=== PATIENT | male | born 1940 | race Hispanic/Latino ===

== ENCOUNTER 2017-07-05 22:08 | Observation (INO) | payer MEDICARE, BC ==
[2017-07-05] MEDS ORDERED: Sodium Chloride 0.9% 1,000 ML IV STA (22:38)
[2017-07-05] MEDS ORDERED: Morphine 4 MG/ML VIAL IV ONE (22:38)
[2017-07-05] MEDS ORDERED: Iohexol 240 (50 ml) PO ONE (22:38)
--- NOTE | 2017-07-05 22:40 | ED PDOC ---
HPI: Chest Pain Time Seen by Provider: 07/05/17 22:23 Chief Complaint (Nursing): Chest Pain Chief Complaint (Provider): Abd pain History Per: Patient History/Exam Limitations: no limitations Onset/Duration Of Symptoms: Days (today) Current Symptoms Are (Timing): Better Additional Complaint(s): Pt. with off and on abd pain diffuse. No diarrhea, weakness, nasuea, vomit. Also off and on mild tightness to left chest. Currently very minimal chest tightness. No weakness, headaches, dizziness. No neck pain. No dyspnea. No new food or drinks. No fever. No dysuria. Pt. took an ASA today. Past Medical History Reviewed: Nursing Documentation, Vital Signs Vital Signs: Last Vital Signs Temp 97.4 F L 07/05/17 22:20 Pulse 58 L 07/05/17 22:20 Resp 16 07/05/17 22:20 BP 160/63 H 07/05/17 22:20 Pulse Ox 98 07/05/17 22:43 - Medical History PMH: CAD, HTN, Hypercholesterolemia, Chronic Kidney Disease - Surgical History Surgical History: Coronary Stent - Family History Family History: States: Unknown Family Hx - Social History Alcohol: None Drugs: Denies - Allergies Allergies/Adverse Reactions: Allergies Allergy/AdvReac Type Severity Reaction Status Date / Time No Known Allergies Allergy Verified 07/05/17 22:23 Review of Systems ROS Statement: Except As Marked, All Systems Reviewed And Found Negative Cardiovascular: Positive for: Chest Pain Gastrointestinal: Positive for: Abdominal Pain Physical Exam - Reviewed Nursing Documentation Reviewed: Yes Vital Signs Reviewed: Yes - Physical Exam Appears: Positive for: Non-toxic, No Acute Distress Head Exam: Positive for: ATRAUMATIC, NORMAL INSPECTION, NORMOCEPHALIC Skin: Positive for: Normal Color, Warm, DRY Eye Exam: Positive for: EOMI, Normal appearance, PERRL ENT: Positive for: Normal ENT Inspection Neck: Positive for: Normal, Painless ROM Cardiovascular/Chest: Positive for: Regular Rate, Rhythm Respiratory: Positive for: CNT, Normal Breath Sounds Gastrointestinal/Abdominal: Positive for: Soft, Tenderness (mild diffuse; no palpable mass; no distension). Negative for: Distended, Guarding Back: Positive for: Normal Inspection. Negative for: L CVA Tenderness, R CVA Tenderness Extremity: Positive for: Normal ROM. Negative for: Tenderness, Pedal Edema Neurologic/Psych: Positive for: Alert, Oriented - Laboratory Results Result Diagrams: 07/05/17 22:40 07/05/17 22:40 Interpretation Of Abn Labs: 04/05.6 - ECG ECG: Positive for: Interpreted By Me, Viewed By Me ECG Rhythm: Positive for: Sinus Rhythm, Right Bundle Branch Block O2 Sat by Pulse Oximetry: 98 Pulse Ox Interpretation: Normal - Radiology X-Ray: Interpreted by Me, Viewed By Me X-Ray Interpretation: No Acute Disease - Progress ED Course And Treament: 2332: Stable. Considering bun and cr, will give IV contrast in order to look as vessels in abd. Pt. with risk factors indicating need for proper evaluation. Will hydrate pt. Dr. Mitchell to take over care. Fu on ct. Disposition - Clinical Impression Clinical Impression: Chest pain, Abdominal pain - Patient ED Disposition Is Patient to be Admitted: Transfer of Care - Disposition Disposition: Transfer of Care Disposition Time: 23:35 Condition: FAIR Patient Signed Over To: Angel Mitchell
[2017-07-05] MEDS ORDERED: Morphine 4 MG/ML VIAL ONE (22:46)
[2017-07-05 22:50] LABS: BASO % 0.3 % (0.0-2.0); EOS % 0.8 % (0.0-4.0); LYMPH # 1.2 K/uL (1.0-4.3); LYMPH % 18.3 % (20.0-40.0); MEAN CELL VOLUME 91.5 fl (80.0-94.0); MEAN CORPUSCULAR HGB CONC 32.8 g/dL (33.0-37.0); MEAN PLATELET VOLUME 8.8 fl (7.2-11.7); MONO # 0.5 K/uL (0.0-0.8); MONO % 8.5 % (0.0-10.0); NEUT # 4.7 K/uL (1.8-7.0); NEUT % 72.1 % (50.0-75.0); NRBC % 0.1 % (0.0-0.0); RBC 4.02 Mil/uL (4.40-5.90); RED CELL DISTRIBUTION WIDTH 13.6 % (11.5-14.5); WHITE BLOOD COUNT 6.5 K/uL (4.8-10.8)
[2017-07-05 22:56] LABS: ALB/GLOB RATIO 0.9 (1.0-2.1); CALCIUM 10.2 mg/dL (8.4-10.2); PARTIAL THROMBOPLASTIN TIME 28.5 Seconds (25.6-37.1); PROTHROMBIN TIME 10.6 Seconds (9.8-13.1)
[2017-07-05 23:08] LABS: TROPONIN I 0.022 ng/mL (0.00-0.120)
--- NOTE | 2017-07-06 00:04 | ED PDOC ---
- Laboratory Results Result Diagrams: 07/05/17 22:40 07/05/17 22:40 - ECG O2 Sat by Pulse Oximetry: 98 Medical Decision Making Medical Decision Making: Time: 00:00 Patient endorsed to me pending CT and admission to hospital. Time: 01:53 CT Abdomen Pelvis FINDINGS: LUNG BASES: No significant abnormality seen. ABDOMEN: LIVER: Small low density liver lesions, with at least 2 seen, the larger measuring 1 cm. These most likely represent cysts. GALLBLADDER AND BILE DUCTS: No CT evidence of acute cholecystitis. No evidence of significant biliary ductal dilatation. PANCREAS: No CT evidence of acute pancreatitis. SPLEEN: No acute abnormality of the spleen identified. ADRENALS: No acute abnormality of the adrenal glands identified. KIDNEYS AND URETERS: Bilateral perinephric stranding, a nonspecific finding. No evidence of hydroureteronephrosis. STOMACH AND BOWEL: Mild wall thickening of the distal stomach, suspicious for mild focal gastritis. No evidence of diffuse gastric wall thickening. Gastroesophageal reflux. Duodenal diverticulum noted. Otherwise, no significant abnormality of the bowel is identified. No acute abnormality of the colon identified. No evidence of small bowel obstruction. APPENDIX: Appendix is seen, and is within normal limits in appearance. PELVIS: BLADDER: No acute abnormality of the bladder identified. REPRODUCTIVE: No acute abnormality of the reproductive organs is seen. ABDOMEN and PELVIS: INTRAPERITONEAL SPACE: No evidence of free air or free fluid. BONES/JOINTS: Primary osteoarthritic changes involving the hips bilaterally. SOFT TISSUES: Bilateral fat-containing inguinal hernias. VASCULATURE: No evidence of abdominal aortic aneurysm. No evidence of periaortic hemorrhage. LYMPH NODES: Best seen on image 88 series 601, there is a 3.3 x 2.4 cm ovoid soft tissue mass in the right lower abdomen, which appears localized to the small bowel mesentery, and is suspicious for an enlarged mesenteric lymph node. This has tiny calcifications within it. It was also seen on the prior CT, and was similar in size, highly suggestive of a benign etiology. There is mild stranding of the adjacent fat, and there are multiple nearby small mesenteric lymph nodes. No evidence of diffuse pathologic lymphadenopathy. IMPRESSION: - Findings suspicious for focal gastritis, involving the distal stomach. - Findings suspicious for an enlarged 3.3 x 2.4 cm mesenteric lymph node in the right lower quadrant. This was also seen on a remote prior CT of 06/03/2007, and does not appear significantly enlarged in size, highly suggestive of a benign etiology. If indicated clinically, this finding could be further evaluated with PET scan, PET/CT or a short term followup CT. - See above for remaining findings. Time: 02:01 Patient will be admitted to [facility] under obs/tele for chest pain resident aware.. Scribe Attestation: Documented by Judith Grant, acting as a scribe for Angel Mitchell MD Provider Scribe Attestation: All medical record entries made by the Scribe were at my direction and personally dictated by me. I have reviewed the chart and agree that the record accurately reflects my personal performance of the history, physical exam, medical decision making, and the department course for this patient. I have also personally directed, reviewed, and agree with the discharge instructions and disposition. Disposition - Clinical Impression Clinical Impression: Chest pain, Abdominal pain - POA Present On Arrival: None - Disposition Disposition: Hospitalized as Observation Patient Disposition Time: 02:01 Condition: FAIR
[2017-07-06] MEDS ORDERED: Iodixanol 320 MG/ML 100 ML BOTTLE IV ONE (00:44)
[2017-07-06] MEDS ORDERED: Sodium Chloride 0.9% 100 ML ONE (00:45)
--- NOTE | 2017-07-06 01:53 | CT ---
EXAM: CT Abdomen and Pelvis With Intravenous Contrast EXAM DATE/TIME: 07/05/2017 10:38 PM CLINICAL HISTORY: 76 years old, male; Pain; Abdominal pain; Epigastric; Additional info: Abd pain TECHNIQUE: Axial computed tomography images of the abdomen and pelvis with intravenous contrast. All CT scans at this facility use one or more dose reduction techniques, viz.: automated exposure control; ma/kV adjustment per patient size (including targeted exams where dose is matched to indication; i.e. head); or iterative reconstruction technique. Coronal and sagittal reformatted images were created and reviewed. CONTRAST: 80 mL of [id number] administered intravenously. COMPARISON: Prior CT abdomen and pelvis of 06/02/2017 FINDINGS: LUNG BASES: No significant abnormality seen. ABDOMEN: LIVER: Small low density liver lesions, with at least 2 seen, the larger measuring 1 cm. These most likely represent cysts. GALLBLADDER AND BILE DUCTS: No CT evidence of acute cholecystitis. No evidence of significant biliary ductal dilatation. PANCREAS: No CT evidence of acute pancreatitis. SPLEEN: No acute abnormality of the spleen identified. ADRENALS: No acute abnormality of the adrenal glands identified. KIDNEYS AND URETERS: Bilateral perinephric stranding, a nonspecific finding. No evidence of hydroureteronephrosis. STOMACH AND BOWEL: Mild wall thickening of the distal stomach, suspicious for mild focal gastritis. No evidence of diffuse gastric wall thickening. Gastroesophageal reflux. Duodenal diverticulum noted. Otherwise, no significant abnormality of the bowel is identified. No acute abnormality of the colon identified. No evidence of small bowel obstruction. APPENDIX: Appendix is seen, and is within normal limits in appearance. PELVIS: BLADDER: No acute abnormality of the bladder identified. REPRODUCTIVE: No acute abnormality of the reproductive organs is seen. ABDOMEN and PELVIS: INTRAPERITONEAL SPACE: No evidence of free air or free fluid. BONES/JOINTS: Primary osteoarthritic changes involving the hips bilaterally. SOFT TISSUES: Bilateral fat-containing inguinal hernias. VASCULATURE: No evidence of abdominal aortic aneurysm. No evidence of periaortic hemorrhage. LYMPH NODES: Best seen on image 88 series 601, there is a 3.3 x 2.4 cm ovoid soft tissue mass in the right lower abdomen, which appears localized to the small bowel mesentery, and is suspicious for an enlarged mesenteric lymph node. This has tiny calcifications within it. It was also seen on the prior CT, and was similar in size, highly suggestive of a benign etiology. There is mild stranding of the adjacent fat, and there are multiple nearby small mesenteric lymph nodes. No evidence of diffuse pathologic lymphadenopathy. IMPRESSION: - Findings suspicious for focal gastritis, involving the distal stomach. - Findings suspicious for an enlarged 3.3 x 2.4 cm mesenteric lymph node in the right lower quadrant. This was also seen on a remote prior CT of 06/03/2007, and does not appear significantly enlarged in size, highly suggestive of a benign etiology. If indicated clinically, this finding could be further evaluated with PET scan, PET/CT or a short term followup CT. - See above for remaining findings.
--- NOTE | 2017-07-06 03:44 | CP.PCM.HP ---
Addendum entered and electronically signed by Yaw Welsh MD 07/06/17 11:09: Pt seen and examined at bedside. Reports resolved chest discomfort. Improved abdominal discomfort. Tolerating PO diet. Denies SOB/V/diarrhea. AAOX3. Pending Troponin x2 at 14:00 Pending repeat EKG Original Note: History of Present Illness - History of Present Illness History of Present Illness: 76 y/o male with PMHx of CAD, s/p ACS in 2000 ( underwent cardiac cath in [place] with stent placement), HTN, CKD stage 3, prostate cancer s/p partial Prostatectomy, Hypothyroidism, Skin cancer ( basal and squamous cell), Major depression, sleep apnea using CPAP at home, Multiple Myeloma, presents to ED complaining of 24 hours of left sided chest tightness sensation, and diffuse abdominal pain. Patient states that the abdominal pain started first, " difficult to describe", constant, 8-9/10 intensity, no aggravating factors, alleviated to intensity 4-5/10 after ER treatment with combination of morphine and famotidine once, associated with very mild nausea without vomiting episode, and intermittent left sided chest tightness sensation, and heartburn. Also patient reports one soft non bloody stool yesterday. Denies SOB, palpitations, dizziness, diaphoresis, blood in urine or stools, urinary symptoms. Left chest tightness sensation also for the last 24 hours, no radiating, relieved 2 hours ago from this current evaluation. PMD: Dr. Galvan Barrel Assembly Inspector: Dr. Sam( last evaluation was 2 years ago) Agency Operator: Bhavesh Eddy PMHx: CAD, s/p ACS in 2000 ( underwent cardiac cath in [place] with stent placement), HTN, CKD stage 3, prostate cancer s/p partial Prostatectomy, Hypothyroidism, Skin cancer ( basal and squamous cell), Major depression, sleep apnea using CPAP at home, Multiple Myeloma Allergies: Pollen/watery eyes Fhx: Father: of [place] in his 70s, Mother: /CHF Shx: Left Knee meniscus removal, Partial Prostatectomy, Skin Cancer removal ( under surveillance with a tug boat captain, last removal 1 1/2 years ago), Tonsillectomy Social Hx: Former smoker/ Quit in 1988, Social ETOH, denies illicit drugs Meds: as per records in [facility] and [facility] ED course: VS: afebrile, Pulse: 58, BP: 160/63, 98 % oxygen sat in room air PE:remarkable for mild diffuse abdominal tenderness to palpation without rebound , guarding or rigidity EKG: poor quality, but with evidence of RBBB, sinus bradycardia, and Q wave abnormality. labs: CBC unremarkable, CMP: GFR 42, BUN/Cr: 31/1.6, elevated total protein, troponin I x 1 neg CXR: pending official report. No gross evidence of acute changes compared with prior test CT abd:Abd pelvis PO & IV contrast reported as findings suspicious for focal gastritis, involving the distal stomach. Findings suspicious for an enlarged 3.3 x 2.4 cm mesenteric lymph node in the RLQ seen in prior CT on 06/03/2007, suggestive of a benign etiology. Treatment: morphine 4 mg IV once, pepcid 20 mg IV once Present on Admission - Present on Admission Any Indicators Present on Admission: No History of DVT/PE: No History of Uncontrolled Diabetes: No Urinary Catheter: No Decubitus Ulcer Present: No Review of Systems - Review of Systems All systems: reviewed and no additional remarkable complaints except (as per HPI ) Past Patient History - Past Social History Alcohol: None Drugs: Denies - CARDIAC Hx Hypercholesterolemia: Yes Hx Hypertension: Yes - RENAL Hx Chronic Kidney Disease: Yes - PSYCHIATRIC Hx Substance Use: No - SURGICAL HISTORY Hx Coronary Stent: Yes Meds Allergies/Adverse Reactions: Allergies Allergy/AdvReac Type Severity Reaction Status Date / Time No Known Allergies Allergy Verified 07/05/17 22:23 Physical Exam - Constitutional Appears: Non-toxic, No Acute Distress - Eye Exam Eye Exam: Normal appearance - ENT Exam ENT Exam: Mucous Membranes Moist - Respiratory Exam Respiratory Exam: Clear to Auscultation Bilateral, NORMAL BREATHING PATTERN. absent: Accessory Muscle Use, Chest Wall Tenderness, Decreased Breath Sounds, Prolonged Expiratory Phase, Rales, Rhonchi, Wheezes, Respiratory Distress, Stridor - Cardiovascular Exam Cardiovascular Exam: Bradycardia, REGULAR RHYTHM, +S1, +S2. absent: Diastolic murmur, Gallop, Rubs, Systolic Murmur - GI/Abdominal Exam GI & Abdominal Exam: Normal Bowel Sounds, Soft, Tenderness (mild diffuse tenderness to palpation of all quadrants, no rebound tenderness noted). absent : Distended, Guarding, Hernia, Organomegaly, Rebound, Rigid - Extremities Exam Extremities exam: Positive for: normal inspection. Negative for: calf tenderness, pedal edema - Back Exam Back exam: NORMAL INSPECTION. absent: CVA tenderness (L), CVA tenderness (R) - Neurological Exam Neurological exam: Alert, Oriented x3 - Psychiatric Exam Psychiatric exam: Normal Affect, Normal Mood - Skin Skin Exam: Dry, Intact, Normal Color Results - Vital Signs Recent Vital Signs: Last Vital Signs Temp 97.4 F L 07/05/17 22:20 Pulse 58 L 07/05/17 22:20 Resp 16 07/05/17 22:20 BP 160/63 H 07/05/17 22:20 Pulse Ox 98 07/06/17 03:02 - Labs Result Diagrams: 07/05/17 22:40 07/05/17 22:40 Labs: Laboratory Results - last 24 hr 07/05/17 07/05/17 07/05/17 22:40 22:40 22:40 WBC 6.5 RBC 4.02 L Hgb 12.0 Hct 36.8 MCV 91.5 MCH 30.0 MCHC 32.8 L RDW 13.6 Plt Count 181 MPV 8.8 Neut % (Auto) 72.1 Lymph % (Auto) 18.3 L [place] % (Auto) 8.5 Eos % (Auto) 0.8 Baso % (Auto) 0.3 Neut # (Auto) 4.7 Lymph # (Auto) 1.2 [place] # (Auto) 0.5 Eos # (Auto) 0.0 Baso # (Auto) 0.0 PT 10.6 INR 1.0 APTT 28.5 Sodium 142 Potassium 4.2 Chloride 101 Carbon Dioxide 29 Anion Gap 16 BUN 31 H Creatinine 1.6 H Est GFR ( Amer) 51 Est GFR (Non-Af Amer) 42 Random Glucose 129 H Calcium 10.2 Total Bilirubin 0.6 AST 31 ALT 35 Alkaline Phosphatase 61 Troponin I 0.0220 Total Protein 8.5 H Albumin 4.0 Globulin 4.4 H Albumin/Globulin Ratio 0.9 L Lipase 154 Assessment & Plan - Assessment and Plan (Free Text) Assessment: 76 y/o male with extensive PMHx including CAD presents with diffuse abdominal pain, and left side chest tightness sensation admitted to R/O ACS. Plan: Left sided chest tightness -rule out ACS -Telemetry unit -continues security monitor -h/o CAD, s/p Cardiac Cath and stent placement -could be 2/2 GERD, however pt has a h/o CAD, and abnormal EKG -EKG in ER : poor quality, but with evidence of RBBB, sinus bradycardia, and Q wave abnormality. No Old EKG available in [facility] or [facility] for comparison. -repeat EKG -Troponin I x 1 was negative -Repeat Troponin I x 2 Q8 -Nitroglycerin SL 0.4 mg Q5M PRN for chest pain -c/w aspirin 81 mg -c/w Statin -oxygen via NC if oxygen sat <94 % -CXR: pending official report. No gross evidence of acute changes compared with prior test -as per he had a stress test approximately 7 years ago with possible negative results -Consider Cardiology consult Abdominal pain- -most likely 2/2 gastritis -associated with mild nausea, and heartburn -afebrile, no leukocytosis -partial relieved with morphine and pepcid -lipase WNL -give protonix 40 mg IV once -re-asses after protonix -f/u urinalysis -consider trial of PPI with diet modifications -Abd pelvis PO & IV contrast reported as findings suspicious for focal gastritis , involving the distal stomach. Findings suspicious for an enlarged 3.3 x 2.4 cm mesenteric lymph node in the RLQ seen in prior CT on 06/03/2007, suggestive of a benign etiology. -As per patient, he underwent endoscopy/colonoscopy 2-3 years ago with normal results HTN -c/w home lisinopril 10 mg PO daily Chronic Kidney Disease -Stage 3 -GFR 42 -BUN/Cr: 31/1.6 -c/w home treatment Hypothyroidism -no prior TSH in records -will test TSH and Free T4 -c/w Levothyroxine 25 mcg PO daily History of Prostate Cancer -check PSA total and free Major Depression -controlled -c/w home antidepressants DVT prophylaxis -based on age and h/o cancer -Heparin 5000 units Q12 - Date & Time Date: 07/06/17 Time: 03:45
[2017-07-06] MEDS ORDERED: Sodium Chloride 0.9% 250 ML IV ONE (04:25)
[2017-07-06 05:23] LABS: URINE BILIRUBIN NEGATIVE (NEGATIVE); URINE BLOOD NEGATIVE (NEGATIVE); URINE CLARITY CLEAR (Clear); URINE COLOR STRAW (YELLOW); URINE GLUCOSE (UA) NEG (Normal); URINE LEUKOCYTE ESTERASE NEG Leu/uL (Negative); URINE PROTEIN NEGATIVE (NEGATIVE); URINE UROBILINOGEN 0.2-1.0 mg/dL (0.2-1.0)
[2017-07-06] MEDS ORDERED: Levothyroxine 25 MCG TAB PO SCH (06:30)
--- NOTE | 2017-07-06 08:23 | RAD ---
HISTORY: dyspnea COMPARISON: 10/21/2013 FINDINGS: LUNGS: Current lung volumes more shallow. The relative prominence of the perihilar bronchovascular markings is attributed to crowding. No consolidation apparent. PLEURA: No significant pleural effusion identified, no pneumothorax apparent. CARDIOVASCULAR: Normal. OSSEOUS STRUCTURES: No significant abnormalities. VISUALIZED UPPER ABDOMEN: Normal. OTHER FINDINGS: None. IMPRESSION: Current lung volumes more shallow. The relative prominence of the perihilar bronchovascular markings is attributed to crowding. No consolidation apparent.
[2017-07-06] MEDS ORDERED: PARICALCITOL 2 MCG PO SCH (09:00)
[2017-07-06] MEDS ORDERED: buPROPion SR 150 MG TABLET PO SCH (09:00)
--- NOTE | 2017-07-06 11:25 | CARD ---
APPROVED REPORT EKG Measurement Heart [id number] <Conclusion> Sinus bradycardia Right bundle branch block Left posterior fascicular block Bifascicular block Possible Inferior infarct, age undetermined Abnormal ECG
--- NOTE | 2017-07-06 16:12 | CP.PCM.DIS ---
Provider - Provider Date of Admission: 07/06/17 02:01 Attending physician: Yenni Bianchi MD Time Spent in preparation of Discharge (in minutes): 20 Hospital Course - Lab Results Lab Results: Most Recent Lab Values WBC 6.5 K/uL (4.8-10.8) 07/05/17 22:40 RBC 4.02 Mil/uL (4.40-5.90) L 07/05/17 22:40 Hgb 12.0 g/dL (12.0-18.0) 07/05/17 22:40 Hct 36.8 % (35.0-51.0) 07/05/17 22:40 MCV 91.5 fl (80.0-94.0) 07/05/17 22:40 MCH 30.0 pg (27.0-31.0) 07/05/17 22:40 MCHC 32.8 g/dL (33.0-37.0) L 07/05/17 22:40 RDW 13.6 % (11.5-14.5) 07/05/17 22:40 Plt Count 181 K/uL (130-400) 07/05/17 22:40 MPV 8.8 fl (7.2-11.7) 07/05/17 22:40 Neut % (Auto) 72.1 % (50.0-75.0) 07/05/17 22:40 Lymph % (Auto) 18.3 % (20.0-40.0) L 07/05/17 22:40 [place] % (Auto) 8.5 % (0.0-10.0) 07/05/17 22:40 Eos % (Auto) 0.8 % (0.0-4.0) 07/05/17 22:40 Baso % (Auto) 0.3 % (0.0-2.0) 07/05/17 22:40 Neut # (Auto) 4.7 K/uL (1.8-7.0) 07/05/17 22:40 Lymph # (Auto) 1.2 K/uL (1.0-4.3) 07/05/17 22:40 [place] # (Auto) 0.5 K/uL (0.0-0.8) 07/05/17 22:40 Eos # (Auto) 0.0 K/uL (0.0-0.7) 07/05/17 22:40 Baso # (Auto) 0.0 K/uL (0.0-0.2) 07/05/17 22:40 PT 10.6 Seconds (9.8-13.1) 07/05/17 22:40 INR 1.0 (0.9-1.2) 07/05/17 22:40 APTT 28.5 Seconds (25.6-37.1) 07/05/17 22:40 Sodium 140 mmol/l (132-148) 07/06/17 05:30 Potassium 3.9 MMOL/L (3.6-5.0) 07/06/17 05:30 Chloride 103 mmol/L (98-107) 07/06/17 05:30 Carbon Dioxide 26 mmol/L (22-30) 07/06/17 05:30 Anion Gap 15 (10-20) 07/06/17 05:30 BUN 25 mg/dl (9-20) H 07/06/17 05:30 Creatinine 1.5 mg/dl (0.8-1.5) 07/06/17 05:30 Est GFR ( Amer) 55 07/06/17 05:30 Est GFR (Non-Af Amer) 46 07/06/17 05:30 Random Glucose 120 mg/dL (75-110) H 07/06/17 05:30 Calcium 9.1 mg/dL (8.4-10.2) 07/06/17 05:30 Total Bilirubin 0.6 mg/dl (0.2-1.3) 07/05/17 22:40 AST 31 U/L (17-59) 07/05/17 22:40 ALT 35 U/L (21-72) 07/05/17 22:40 Alkaline Phosphatase 61 U/L (38-126) 07/05/17 22:40 Troponin I 0.0290 ng/mL (0.00-0.120) 07/06/17 14:42 Total Protein 8.5 G/DL (6.3-8.2) H 07/05/17 22:40 Albumin 4.0 g/dL (3.5-5.0) 07/05/17 22:40 Globulin 4.4 gm/dL (2.2-3.9) H 07/05/17 22:40 Albumin/Globulin Ratio 0.9 (1.0-2.1) L 07/05/17 22:40 Triglycerides 99 mg/DL (0-149) 07/06/17 04:44 Cholesterol 170 mg/dL (0-199) 07/06/17 04:44 LDL Cholesterol Direct 78 mg/dL (0-129) 07/06/17 04:44 HDL Cholesterol 48 MG/DL (30-70) 07/06/17 04:44 Lipase 154 U/L (23-300) 07/05/17 22:40 TSH 3rd Generation 3.96 mIU/ML (0.46-4.68) 07/06/17 04:44 Urine Color Straw (YELLOW) 07/06/17 05:15 Urine Clarity Clear (Clear) 07/06/17 05:15 Urine pH 6.0 (5.0-8.0) 07/06/17 05:15 Ur Specific [place] 1.034 (1.003-1.030) H 07/06/17 05:15 Urine Protein Negative mg/dL (NEGATIVE) 07/06/17 05:15 Urine Glucose (UA) Neg mg/dL (Normal) 07/06/17 05:15 Urine Ketones Negative mg/dL (NEGATIVE) 07/06/17 05:15 Urine Blood Negative (NEGATIVE) 07/06/17 05:15 Urine Nitrate Negative (NEGATIVE) 07/06/17 05:15 Urine Bilirubin Negative (NEGATIVE) 07/06/17 05:15 Urine Urobilinogen 0.2-1.0 mg/dL (0.2-1.0) 07/06/17 05:15 Ur Leukocyte Esterase Neg [place]/uL (Negative) 07/06/17 05:15 - Hospital Course Hospital Course: 76 y/o male with PMHx of CAD, s/p ACS in 2000 (underwent cardiac cath in [place] with stenting), HTN, CKD stage 3, prostate cancer s/p partial prostatectomy, Hypothyroidism, Skin cancer (basal and squamous cell), Major depression, sleep apnea using CPAP at home, Multiple Myeloma, presents to ED complaining of 24 hours of left sided chest tightness sensation, and diffuse abdominal pain. Ruled out ACS: Troponin negative x3. Pt discovered to have gastritis, treated with: Famotidine 20 mg PO BID and Pantoprazole 40 mg. Pt given ER precautions and education regarding heart healthy diet including DASH/ mediterranean diet and tips on reducing acid reflux. follow up appt with Dr. Galvan 07/26/2017 at 09:00 Discharge Exam - Head Exam Head Exam: ATRAUMATIC, NORMAL INSPECTION, NORMOCEPHALIC Discharge Plan - Discharge Medications Prescriptions: Allopurinol [Zyloprim] 100 mg PO DAILY 30 Days #30 tab Aspirin [Aspirin Chewable] 81 mg PO DAILY 30 Days #30 chew buPROPion XL [Wellbutrin XL] 150 mg PO DAILY 30 Days #30 t24 Calcium Acetate [Phoslo] 667 mg PO TID 30 Days #90 capsule Cholecalciferol [Vitamin D 1000 IU] 1,000 unit PO DAILY 30 Days #30 tab Famotidine [Pepcid] 20 mg PO BID 30 Days #30 tab Levothyroxine [Synthroid] 25 mcg PO DAILY 30 Days #30 tab Lisinopril [Zestril] 10 mg PO DAILY 30 Days #30 tab Niacinamide [Niacin] 500 mg PO DAILY 30 Days #30 tablet Paricalcitol [Zemplar] 2 mcg PO DAILY 30 Days #30 capsule Rosuvastatin Calcium [Crestor] 25 mg PO DAILY 30 Days #30 tablet Sertraline [Zoloft] 50 mg PO DAILY 30 Days #30 tab Sodium Bicarbonate Tab 650 mg PO DAILY 30 Days #30 tab - Follow Up Plan Condition: FAIR Disposition: HOME/ ROUTINE Instructions: Acute Abdominal Pain (DC), Acute Abdominal Pain (GEN), Chest Pain That Is Not Caused by the Heart (DC), Chest Pain, Acute Abdomen (Belly Pain ), Adult (DC) Additional Instructions: Please follow up with Dr. Galvan at 122 ryan: 07/26/2017 at 09:00
[2017-07-06 16:17] VITALS: BP 147/66; PULSE 65; RESP 20; TEMP 98.2; O2SAT 96
[2017-07-07] MEDS ORDERED: Pantoprazole 40 mg EC Tab PO SCH (09:00)
[2017-07-07 17:11] LABS: TOTAL PSA 0.1 ng/mL (< or = 4.0)
--- NOTE | 2017-07-08 18:25 | CARD ---
APPROVED REPORT EKG Measurement Heart [id number] UT [id number] <Conclusion> Sinus bradycardia Right bundle branch block Cannot rule out Inferior infarct, age undetermined Abnormal ECG
== END 2017-07-06 17:05 | disposition home or self-care (01) ==
LOC: H.ER 22:08 → H.ERHOLD 07-06 02:01 → H.TEL 07-06 06:33
PROVIDERS: ADMIT Family Medicine Geriatric Medicine; ATTEND Family Medicine Geriatric Medicine
DX: K29.70 Gastritis, unspecified, without bleeding (principal); I12.9 Hypertensive chronic kidney disease with stage 1 through stage 4 chronic kidney disease, or unspecified chronic kidney disease; N18.3 Chronic kidney disease, stage 3 (moderate); Z85.46 Personal history of malignant neoplasm of prostate; I25.10 Atherosclerotic heart disease of native coronary artery without angina pectoris; Z95.5 Presence of coronary angioplasty implant and graft; E78.00 Pure hypercholesterolemia, unspecified; E03.9 Hypothyroidism, unspecified; Z85.828 Personal history of other malignant neoplasm of skin; F32.9 Major depressive disorder, single episode, unspecified; G47.30 Sleep apnea, unspecified; Z87.891 Personal history of nicotine dependence; C90.00 Multiple myeloma not having achieved remission
CPT/HCPCS: 71045; 74177; 80048; 80053; 80061; 81003; 83690; 84153; 84154; 84443; 84484; 85025; 85610; 85730; 93005; 96374; 99283; C9113; G0378; J1644; J2270; J7040; Q9966; Q9967